=== PATIENT | male | born 1945 | race Caucasian/White ===

== ENCOUNTER 2017-08-04 11:37 | Emergency (ER) | payer MEDICARE, OTHER ==
--- NOTE | ~2017-08-04 | ER ---
PATIENT'S NAME: IRMA TOLEDO [facility] AGE: 72 Y [address] ROOM: [place] [address] LOCATION: [facility] ADMIT DATE: 08/04/2017 ER/Outpatient Report DISCHARGE DATE: 08/04/2017 FAMILY PHYSICIAN: Vish Pathak MD ATTENDING PHYSICIAN: Shashi Arcos Time of arrival: 1140 hours. Time of exam: 1150 hours. CHIEF COMPLAINT: Right index finger laceration. HISTORY OF PRESENT ILLNESS: The patient states yesterday 08/03/2017, he was working with a grinder gear when it slipped, and he cut his right index finger. It occurred about 4 o'clock yesterday. He has continued to have movement of his finger, but it is tender today and he was concerned that he may need tetanus updated. The patient has a laceration on the anterior surface across the proximal interphalangeal joint. Denies any numbness or tingling of his finger. Denies any weakness of his finger. ALLERGIES: HE HAS NO KNOWN ALLERGIES. MEDICATIONS: No current medications. PAST MEDICAL HISTORY: Negative. PAST SURGICAL HISTORY: Negative. SOCIAL HISTORY: He denies use of tobacco or drugs. He drinks alcohol on occasion on the weekends. He is here visiting from [place]. Last tetanus, he is unsure. REVIEW OF SYSTEMS: Negative other than those mentioned in the HPI. PHYSICAL EXAMINATION: VITAL SIGNS: He weighed 87 kg. Blood pressure is 167/88, pulse of 94, respirations 20, temperature of 96, O2 saturation is 95% on room air. GENERAL: He is awake, alert, and oriented x4. SKIN: [place], warm, and dry. PATIENT'S NAME: IRMA TOLEDO [facility] AGE: 72 Y [address] ROOM: [place], [place] [address] LOCATION: [facility] ADMIT DATE: 08/04/2017 ER/Outpatient Report DISCHARGE DATE: 08/04/2017 FAMILY PHYSICIAN: Vish Pathak MD ATTENDING PHYSICIAN: Shashi Arcos RESPIRATIONS: Even and nonlabored. LUNG: Sounds were clear throughout. HEART: Regular rate and rhythm. EXTREMITIES: The patient has a laceration to his right index finger dorsal aspect that goes from the middle phalange across the proximal interphalangeal joint into the proximal phalange area, measures 1.5 cm. He is able to move his finger and has good strength to it. His nail bed is pink with less than 3- second [place]. Pulses, radial and ulnar are strong. LABORATORY DATA AND X-RAYS: X-ray was completed, reviewed with Dr. Arcos. Finger was anesthetized with 1% plain Xylocaine. Tendon was evaluated by myself and Dr. Arcos, is intact. The patient continues to have good strength of his finger. The area was cleansed well with saline flush and then cleansed with saline and Betadine. It was then closed with 4-0 Ethilon x3 stitches. The patient tolerated the procedure well. Tdap was given to update his tetanus status. IMPRESSION: Finger laceration. PLAN: Home, rest. Keep the area clean and dry. Change the dressing on a daily basis. Tylenol or ibuprofen for discomfort. Prescription was written for cephalexin. He is to follow up with his orthopedic provider in the next 2 to 3 days. He verbalized understanding. KARLOS JEAN APRN FOR MD [facility] SANTA/modl /[id number] I have personally evaluated this patient. I have reviewed the assessment and plan as above and agree. Shashi Arcos MD d: 08/04/17 2232 t: 08/13/17 1100, OUTPATIENT REPORT
== END 2017-08-04 13:45 | disposition disaster alternative care site (69) ==
LOC: GACC 11:37
PROC: 0HQFXZZ Repair Right Hand Skin, External Approach (ICD-10-PCS; principal; 2017-08-04)
DX: S61.210A Laceration without foreign body of right index finger without damage to nail, initial encounter (principal); Z23 Encounter for immunization; W45.8XXA Other foreign body or object entering through skin, initial encounter; Y93.89 Activity, other specified